=== PATIENT | male | born 1990 | race Hispanic/Latino ===

== ENCOUNTER 2024-04-19 12:13 | Emergency (ER) | payer SELFPAY ==
[~2024-04-19] VITALS: Ht 172.7 cm; Wt 94.1 kg
[2024-04-19] MEDS ORDERED: ACETAMINOPHEN-1 EAC4 PO (12:40)
[2024-04-19] MEDS ORDERED: IBUPROFEN200 MG PO (12:40)
[2024-04-19] MEDS: ACETAMINOPHEN 325 MG TAB PO ONE (13:16)
[2024-04-19] MEDS: KETOROLAC TROMETHAMINE 30 MG/ML VIAL IM ONE (13:16)
[2024-04-19 13:38] VITALS: PULSE 88; RESP 18; TEMP 98.1; O2SAT 98
== END 2024-04-19 13:38 | disposition home or self-care (01) ==
LOC: FSED 12:20
DX: S93.492A Sprain of other ligament of left ankle, initial encounter (principal); W01.0XXA Fall on same level from slipping, tripping and stumbling without subsequent striking against object, initial encounter; Y93.01 Activity, walking, marching and hiking; Y92.89 Other specified places as the place of occurrence of the external cause
CPT/HCPCS: 73610; 96372; 99283; J1885